=== PATIENT | male | born 1985 | race Caucasian/White ===

== ENCOUNTER 2024-01-24 08:29 | Emergency (ER) | payer SELFPAY ==
[2024-01-24 08:31] VITALS: BP 128/65
[2024-01-24 08:49] VITALS: BMI 27.7
--- NOTE | 2024-01-24 09:12 | ED.GENMED ---
History of Present Illness
General
Chief Complaint: Anal/Rectal Problem
Source: patient
Time Seen by Provider: 01/24/24 09:00
History of Present Illness
History of Present Illness:
39-year-old male who noted rectal pain on Friday and thought it might be a hemorrhoid. He saw his primary care doctor yesterday and was prescribed Preparation H. However, in the last 12 to 18 hours pain is gotten progressively worse which
prompted his visit here. He is still having normal bowel movements most recently yesterday without black stool or blood. He denies fever, chills, nausea, vomiting, abdominal pain, bleeding, or other complaints. He says that he can feel something
'inside' which is exquisitely tender upon palpation.
Past History
Past History
ED Past Medical History: None
ED Past Surgical History: Appendectomy, Cholecystectomy and Tonsilectomy
Patient has exhibited threatening behavior?: No
Phy Exam
Physical Exam
Physical Exam:
GENERAL: Alert , in no apparent distress
EYE: pupils equal and reactive
NECK: Supple, no significant adenopathy.
ENT: o/p clr, mmm.
CARDIAC: Regular rate and rhythm .
LUNGS: Clear breath sounds bilaterally, no acute respiratory distress, no wheezes/rales/rhonchi
ABDOMEN: Soft, without focal tenderness, no r/g, no cvat
NEUROLOGICAL: Alert and oriented, no focal neuro deficits
SKIN: Warm and dry, skin intact.
MUSCULOSKELETAL: No edema, well perfused.
PSYCH: Normal and appropriate interaction.
rectal: RONAL arredondo present...no external findings noted, no redness/warmth/skin tags/hemorrhod externally. No bleeding. With palpation eternally at 10 o'clock position there is ttp with assoc semifirm palpable mass
Course
Orders/Labs/Results
Orders:
Orders
01/24/24 09:11
CT Pelvis With Iv Contrast Urgent
Comment:
Reason For Exam: rectal mass/pain
01/24/24 09:13
Basic Metabolic Panel Urgent
Complete Blood Count/No Diff Urgent
01/24/24 09:35
Ketorolac [Toradol] 15 mg .ROUTE .STK-MED ONE
Ketorolac [Toradol] 15 mg IV NOW STA
Abnormal Lab Results
01/24/24
09:13
RBC 4.23 L 10^6/uL
(4.70-6.10)
Hct 37.0 L %
(39.0-52.0)
MCH 31.4 H pg
(27.0-31.0)
MPV 11.4 H fL
(7.4-10.4)
01/24/24 09:13
01/24/24 09:13
Vital Signs
Initial and Last Documented VS:
Initial Vital Signs
Temp Pulse Resp BP Pulse Ox
98.2 F 73 16 128/65 98
01/24/24 08:31 01/24/24 08:31 01/24/24 08:31 01/24/24 08:31 01/24/24 08:31
Last Documented Vital Signs
Temp Pulse Resp BP Pulse Ox
98.2 F 73 16 128/65 98
01/24/24 08:31 01/24/24 08:31 01/24/24 08:31 01/24/24 08:31 01/24/24 08:31
*Critical Care Note
Total Time (30-74mins, 75-104mins- exclusive of procedures): Not Applicable
Update Note
Update Note:
Patient presents to the Emergency Department with ____rectal pain
Number and Complexity of Problems Addressed at the Encounter
� Chronic conditions affecting care:
� Acute Exacerbation and/or Progression of Chronic Illness:
� Differential Diagnosis includes: Not limited to external hemorrhoid, internal hemorrhoid, anal fissure, abscess
Amount and/or Complexity of Data to be Reviewed and Analyzed
� I performed an independent evaluation of and my interpretation is:
EKG:
CT:read by rads Findings at the right lateral inferior margin of the anus considered suspicious for perianal phlegmon and possible developing fistula.
Xrays:
Laboratory Studies: generally unremarkable
Other:
� Review of other/old records reveals:
� Clinical information was obtained by an independent historian:
� Prescriptions/Medications Considered but not given:
� Further testing considered but not performed:
Risk of Complications and/or Morbidity or Mortality of Patient Management
� Social determinants of health affecting care:
� Discussion with other providers (PCP, Hospitalists, Consultants, etc):
� Escalation of care including admission/observation vs risk of discharge considered: Patient feels moderately better status post Toradol. Case discussed with Dr. mendoza via [place] text, recommends drainage if we find that this is
amenable, otherwise discharge with close follow-up and antibiotics. I do not find that collection is close enough to the skin that would make it a reasonable procedure in the emergency department, and will defer further treatment regarding drainage
to colorectal, start antibiotics, pain control. Patient advised regarding risks of meds strictly constipation. Given referral for colorectal to see early this week.
ED Attending Note
-
Portions of this chart may have been created with voice recognition software.� Occasional wrong word or��sound alike� substitutions may have occurred due to the inherent limitations of voice recognition software.
Discharge Plan
Departure
Patient Disposition: Home (Routine Discharge)
Date of Disposition: 01/24/24
Time of Disposition: 12:19
Patient with high blood pressure during this ER visit?: Yes
Condition: Good
Discharge Problem:
perianal phlegmon
Instructions: Anal Abscess and Fistula, Adult (DC), BLOOD PRESSURE
Prescriptions:
New
oxycodone-acetaminophen [Percocet] 5-325 mg tablet
1 tab PO Q4HPRN PRN (Reason: pain) Qty: 13 0RF
amoxicillin-pot clavulanate 875-125 mg tablet
1 tab PO BID Qty: 20 0RF
Referrals:
Gabino Mendoza MD [Active] - Follow up in 2-3 days
Erin Dawn MD [Family Provider] -
Activity Restrictions/Additional Instructions:
PLEASE TAKE LAXATIVES/STOOL SOFTENERS NEEDED TO KEEP YOUR STOOLS SOFT/AVOID CONSTIPATION. IF YOU DEVELOP INCREASING/NEW PAIN, FEVER, VOMITING, ABDOMINAL PAIN, DIFFICULTY HAVING A BOWEL MOVEMENT, OR OTHER WORRISOME SIGNS, GO TO THE ER IMMEDIATELY!
Interventions
Interventions:
*Risk Screen - Suicide Last Done: 01/24/24 08:31
*General Assessment Last Done: 01/24/24 08:31
*Neglect/Abuse Screening Last Done: 01/24/24 08:31
Discharge Date and Time
Print Language: UKRAINIAN
[2024-01-24] MEDS: TORADOL 15 MG IV (09:36)
[2024-01-24 09:50] LABS: Hemoglobin 13.3 g/dL (13.0-18.0); Mean Corp Hgb Conc. 35.9 g/dL (33.0-37.0); Mean Corpuscular Hgb 31.4 pg (27.0-31.0); Mean Corpuscular Volume 87.5 fL (80.0-94.0); Mean Platelet Volume 11.4 fL (7.4-10.4); Platelet Count 251 10^3/uL (130-400); Red Blood Cell Count 4.23 10^6/uL (4.70-6.10)
[2024-01-24 10:05] LABS: Blood Urea Nitrogen 14 mg/dl (9-20); Calcium 9.5 mg/dl (8.4-10.2); Carbon Dioxide 26 mmol/L (22-30); Chloride 105 mmol/L (98-107); Estimated Creatinine Clearance 119 ml/min; Glucose 92 mg/dl (70-99); Potassium 4.2 mmol/L (3.5-5.1); Sodium 139 mmol/L (135-145); eGFR > 60.00
[2024-01-24 12:35] VITALS: BP 128/64
== END 2024-01-24 12:35 | disposition home or self-care (01) ==
LOC: EMR 08:29
PROVIDERS: EMERGENCY PHYSICIAN Emergency Medicine; FAMILY PHYSICIAN Internal Medicine
DX: K61.0 Anal abscess (principal)
CPT/HCPCS: 99284; 96374; 72193; 80048; 85027; Q9967